=== PATIENT | female | born 1960 | race Caucasian/White ===

== ENCOUNTER → 2016-12-23 | Outpatient (CLI) | payer BC | END | disposition home or self-care (01) | LOC: CDC 14:20 | DX: Z01.810 Encounter for preprocedural cardiovascular examination (principal); R93.8 Abnormal findings on diagnostic imaging of other specified body structures | CPT/HCPCS: 93000 ==

== ENCOUNTER 2016-12-31 08:30 | Day surgery (SDC) | payer BC ==
[~2016-12-31] VITALS: Ht 154.9 cm; Wt 61.0 kg
[2016-12-31 08:46] VITALS: BP 125/68
[2016-12-31 12:00] VITALS: BP 117/89
[2016-12-31 13:00] VITALS: BP 112/69
[2016-12-31 13:53] VITALS: BP 127/77
== END 2016-12-31 13:55 | disposition home or self-care (01) ==
LOC: SDC 08:30
DX: R93.8 Abnormal findings on diagnostic imaging of other specified body structures (principal); N91.0 Primary amenorrhea; N85.4 Malposition of uterus; N88.2 Stricture and stenosis of cervix uteri; E66.3 Overweight; Z68.27 Body mass index [BMI] 27.0-27.9, adult; Z20.2 Contact with and (suspected) exposure to infections with a predominantly sexual mode of transmission; Z83.3 Family history of diabetes mellitus; Z82.49 Family history of ischemic heart disease and other diseases of the circulatory system; Z83.49 Family history of other endocrine, nutritional and metabolic diseases; Z80.3 Family history of malignant neoplasm of breast; Z80.41 Family history of malignant neoplasm of ovary; Z80.49 Family history of malignant neoplasm of other genital organs; Z82.3 Family history of stroke
CPT/HCPCS: 88305; J1100; J1170; J1885; J2250; J2405; J3010

== ENCOUNTER → 2017-09-26 | Outpatient (CLI) | payer BC ==
[~2017-09-26] VITALS: Ht 154.9 cm; Wt 68.0 kg
[~2017-09-26] MED LIST: DOXYCYCLINE HYC20 MG PO; TYLENOL EXTRA500 MG PO
== END | disposition home or self-care (01) ==
LOC: AMB 12:30
PROC: 0DJD8ZZ Inspection of Lower Intestinal Tract, Via Natural or Artificial Opening Endoscopic (ICD-10-PCS; principal; 2017-09-26)
DX: Z12.11 Encounter for screening for malignant neoplasm of colon (principal); E78.5 Hyperlipidemia, unspecified; E66.3 Overweight; Z68.28 Body mass index [BMI] 28.0-28.9, adult; L71.9 Rosacea, unspecified; Z80.3 Family history of malignant neoplasm of breast; Z83.3 Family history of diabetes mellitus; Z82.49 Family history of ischemic heart disease and other diseases of the circulatory system; Z80.41 Family history of malignant neoplasm of ovary; Z80.49 Family history of malignant neoplasm of other genital organs; Z82.3 Family history of stroke; Z83.49 Family history of other endocrine, nutritional and metabolic diseases